=== PATIENT | female | born 1965 | race Caucasian/White ===

== ENCOUNTER 2016-10-04 12:42 | Emergency (ER) | payer OTHER ==
[2016-10-04 12:42] VITALS: BP 115/70
[~2016-10-04 12:42] MED LIST: ALBU1.25 NEB; ALBU18HF IH; AZIT250T PO; DIAZ5TAB PO; FLUT1DIS5 IH; IBUP200T43 PO; METH-37 PO; METH4TAB2 PO; NAPR500T3 PO; TRAM-29 PO
--- NOTE | 2016-10-04 13:12 | RAD ---
Left middle finger, 3 views, 10/04/2016: History: Injury, bruising No fracture or dislocation is identified. The soft tissues are unremarkable. IMPRESSION: No acute abnormality is detected.
[2016-10-04] MEDS ORDERED: IBUP800T PO (14:25)
--- NOTE | 2016-10-04 14:30 | ED.ADGEN ---
Past History Past Medical History: Anxiety, Asthma, COPD Past Surgical History: Appendectomy, Tubal ligation Alcohol Use: None Drug Use: Marijuana Adult General Chief Complaint Chief Complaint left long finger injury HPI HPI Patient is a 51 year old female who presents with left long finger injury. 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 She denies any other injuries. No lacerations reported, small flake of skin lifted off, no bleeding. Now she is having trouble bending that finger. Review of Systems Review of Systems Constitutional: Denies fever or chills [] Eyes: Denies change in visual acuity, redness, or eye pain [] HENT: Denies nasal congestion or sore throat [] Respiratory: Denies cough or shortness of breath [] Cardiovascular: Denies chest pain GI: Denies abdominal pain, nausea, vomiting, bloody stools or diarrhea [] : Denies dysuria or hematuria [] Musculoskeletal: Denies back pain Integument: Denies rash or skin lesions [] Neurologic: Denies headache, focal weakness or sensory changes [] Allergies Allergies Allergies Coded Allergies Type Severity Reaction Last Updated Verified No Known Drug Allergies 09/30/14 No Physical Exam Physical Exam Constitutional: Well developed, well nourished, no acute distress, non-toxic appearance. [] HENT: Normocephalic, atraumatic Cardiovascular:Heart rate regular Lungs & Thorax: No respiratory distress Extremities: Left hand has extended long finger with slight mallet formation of the distal phalanx, normal cap refill, normal sensory throughout the finger, tenderness to palpation generalized proximal and middle phalanges, skin appears intact, no lateral subluxation, patient is able to move at the MCP but unable to flex at the PIP or extend or flex at the DIP , no other hand tenderness to palpation Neurologic: Alert and oriented X 3, normal motor function, normal sensory function, no focal deficits noted. [] Psychologic: Affect normal, judgement normal, mood normal. [] EKG EKG [] Radiology/Procedures Radiology/Procedures XRay hand: Left middle finger, 3 views, 10/04/2016: History: Injury, bruising No fracture or dislocation is identified. The soft tissues are unremarkable. IMPRESSION: No acute abnormality is detected. [] Course & Med Decision Making Course & Med Decision Making Pertinent Labs and Imaging studies reviewed. (See chart for details) discussed findings with Dr. Gutierrez. Recommends finger splint and f/u with ortho in 1 week. Referral information given to patient. Finger splint placed by nursing staff and reviewed by me. has good distal neurovascular status. Final Impression Final Impression closed Finger injury with ligament tendon Problems: Dragon Disclaimer Dragon Disclaimer This electronic medical record was generated, in whole or in part, using a voice recognition dictation system. BONI AMBROSE MD Oct 04, 2016 14:30
== END 2016-10-04 14:43 | disposition home or self-care (01) ==
LOC: ER 12:42
DX: S67.193A Crushing injury of left middle finger, initial encounter (principal); J44.9 Chronic obstructive pulmonary disease, unspecified; F12.10 Cannabis abuse, uncomplicated; W22.8XXA Striking against or struck by other objects, initial encounter; Y93.89 Activity, other specified; Y99.8 Other external cause status; Y92.89 Other specified places as the place of occurrence of the external cause
CPT/HCPCS: 29130; 73140; 99284-25

== ENCOUNTER → 2016-10-06 | Emergency (ER) | payer OTHER ==
[~2016-10-06] VITALS: Ht 154.9 cm; Wt 109.8 kg
[~2016-10-06] MED LIST changes: +IBUP800T PO
[2016-10-06 19:05] VITALS: BP 141/63
--- NOTE | 2016-10-06 19:54 | PHYS DOC ---
General Chief Complaint: FINGER INJURY Stated Complaint: FINGER PAIN Time Seen by MD: 19:20 Source: patient Problems: History of Present Illness Initial Comments Patient here for left third and fourth digit pain. 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 She was initially seen here in the ED. She had no fracture but a splint placed. She'll follow-up the following day with her Worker's Compensation doctor. She's had her Worker's Compensation doctor told her she couldn't write any prescriptions for pain. Patient's been using Motrin at home for pain without help and presents now with continued pain in her digits. She says the pain is so bad now that starting to radiate up the arm. She indicates the pain is mostly in the digits is as described. She still has sensation. She is able to move the digits, albeit with extreme pain by her report. There is no new injury reported, and no other injuries are noted or reported except the 2 digits as described. Other than use Motrin at home and follow-up with her Worker's Compensation doctor there's been nothing done for this at home and no fractures noted increase or decrease her symptoms. Patient's past medical she is work for asthma and COPD. She does use inhalers and nebulizers on an as-needed basis. She is currently a nonsmoker and nonuser of ethanol. Allergies: Coded Allergies: No Known Drug Allergies (Unverified , 09/30/14) Past Medical History Medical History: asthma, COPD, other Social History Smoker: non-smoker Alcohol: none Review of Systems Constitutional: no symptoms reported Musculoskeletal: see HPI Skin: no symptoms reported Psychiatric/Neurological: no symptoms reported Physical Exam General Appearance: WD/WN, no apparent distress Extremities: other Neurologic/Psychiatric: alert, normal mood/affect, oriented x 3 Skin: normal color Comments Generally this well-developed well-nourished obese white female in no acute distress. Vitals are as noted. Pertinent findings on physical exam showed that her left third and fourth digits are taped together in a volar splint. Splint is removed from exam. The third and fourth digits are really not swollen, there is no distinct signs of trauma or contusion noted. The digits are diffusely tender, minimally more so over the PIP joints, with exaggerated response by the patient even minimal palpation given the lack of objective findings of injury. Patient has intact sensation and intact refill. The digits are warm. She is able to flex and extend at the DIP PIP and MCP joints, albeit with significant coaching. She does have 5 over 5 strength with giveaway weakness. There is no other injuries noted. Remainder of physical exam is clinically unremarkable. Orders, Labs, Meds Old charts note the patient was seen here 2 days ago for finger injury. She had an x-ray of the right hand which showed no acute fracture dislocation in no acute changes per radiology as well. She's also been seen for COPD, bronchitis, and muscle skeletal chest pain. I discussed with the patient that I'm not sure there is anything more to do now. I'm going to write her prescription for some additional pain medication. She says she has her neck follow up with her Worker's Compensation physician on Sunday, and I'm going to write a prescription for Ultram, 10 tablets, to get her through the weekend. She specifically denies any seizure history. I will ask nursing staff to replace her splint and elsa taped appropriately. We discussed continued home care including rest, ice, and elevation, and the need to follow-up with Worker's Compensation physician Sunday as planned. Patient voices understanding. She looks well, in no acute discomfort distress, okay for discharge home at this time. RAUDEL SANCHEZ MD Oct 06, 2016 19:54
== END ==
LOC: ER 18:58
DX: M79.645 Pain in left finger(s) (principal); J44.9 Chronic obstructive pulmonary disease, unspecified
CPT/HCPCS: 29125; 99283-25

== ENCOUNTER → 2016-11-27 | Outpatient (CLI) | payer OTHER ==
[2016-10-06 19:05] VITALS: BP 141/63
[~2016-11-27] MED LIST changes: -IBUP800T PO; +IBUP800T19 PO; -TRAM-29 PO; +TRAM-48 PO
--- NOTE | 2016-11-27 08:31 | RAD ---
Indication pain. AP and oblique views of the left knee were obtained. A true lateral view was not obtained. No bony abnormality is seen on the 2 views provided
== END | disposition home or self-care (01) ==
LOC: DXRADRC 08:03
PROVIDERS: ATTEND Physician Assistant Medical
DX: M25.562 Pain in left knee (principal); W01.0XXD Fall on same level from slipping, tripping and stumbling without subsequent striking against object, subsequent encounter
CPT/HCPCS: 73560

== ENCOUNTER 2017-02-28 10:47 | Emergency (ER) | payer OTHER ==
[~2017-02-28] VITALS: Ht 154.9 cm; Wt 109.8 kg
--- NOTE | 2017-02-28 10:59 | PHYS DOC ---
General Chief Complaint: sob Stated Complaint: COPD EXACERBATION Time Seen by MD: 10:50 Source: patient, EMS, old records Exam Limitations: no limitations Problems: History of Present Illness Initial Comments Pt is 52/F to ED via EMS with SOB/chest tightness. Pt states she awoke this am around 8, noticed she had SOB/wheeze/anterior chest tightness. Has extensive h/o COPD, called EMS. ASA/duoneb given en route, on arrival pt breathing a little better still with some chest tightness. No diaphoresis/n/v/arm or neck symptoms. No prior cardiac history, no h/o stress/ echo pt follows with A Re[facility]. States she has had cough x 6 days with some wheezing states she "always has trouble breathing." ED VS: 97.4, 82, 118/77, 97% RA Chest pain reproducible with palpation ACW. Timing/Duration: 1-3 hours Severity: moderate Modifying Factors: worse with movement Associated Symptoms: chest pain, cough, shortness of breath Allergies: Coded Allergies: No Known Drug Allergies (Unverified , 09/30/14) Past Medical History Medical History: asthma, COPD, other Surgical History: appendectomy (TL) Psychosocial History: anxiety Social History Smoker: other (quit one year ago) Alcohol: none Drugs: none Review of Systems Constitutional: denies chills, denies diaphoresis, denies fever, denies malaise EENTM: denies ear pain, nose congestion, denies throat pain, denies throat swelling Respiratory: see HPI, cough Cardiovascular: see HPI Gastrointestinal: denies abdominal pain, denies diarrhea, denies nausea, denies vomiting Genitourinary: denies dysuria, denies frequency, denies hematuria Musculoskeletal: denies back pain, denies joint swelling, denies neck pain Psychiatric/Neurological: denies headache, denies numbness, denies paresthesia , denies weakness Hematologic/Lymphatic: denies blood clots, denies easy bleeding, denies easy bruising Physical Exam General Appearance: no apparent distress, obese Ear, Nose, Throat: hearing grossly normal, normal ENT inspection, normal pharynx (dry membranes) Neck: non-tender, supple Respiratory: wheezing (mild diffuse), other (good air movement, ant chest wall TTP, no resp distress) Cardiovascular: normal peripheral pulses, regular rate, rhythm Gastrointestinal: non tender, soft Back: no CVA tenderness, no vertebral tenderness Extremities: normal range of motion, non-tender (3+ pitting LE edema) 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 Interpreted by me. Labs unremarkable CXR PA/Lat: no acute cardiopulmonary process 1251: Walking by room I see pt doubled over in obvious discomfort. She states her CP has increased dramatically to 10/10 with diaphoresis/sob. BP now 86/66, 79 bpm, 34 resp, 97% RA. BP changed to right arm, 101/75. NTG SL x 1, EKG. EKG (1256): EKG: NSR 76 bpm, unchanged from prior 1259: BP arm change, right arm 101/75. NTG SL x 1 no relief 1309: Pt discussed with Padma Arndt for Cardiology. As chest pain cannot be controlled she accepts transfer to [facility], admit to hospitalist. 1316: Dr Da Silva accepts pt for [facility] transfer. Pt received duonebs x 2, ASA, solumedrol 125mg, 2L NS IV, NTG SL x 1 Departure Time of Disposition: 13:20 Disposition: 02 XFER SHT-TRM HOSP Diagnosis: chest pain, COPD, hypotension Condition: GUARDED Additional Instructions: EMS transfer to [facility] for CP/hypotension, Dr Da Silva is accepting. RUPA PIERCE DO Feb 28, 2017 10:59
[2017-02-28] MEDS ORDERED: methylPREDNISolone SOD SUCC PF 125 MG/2 ML VIAL. IV ONE (11:15)
[2017-02-28] MEDS ORDERED: IPRATRPIUM/ALBUTEROL 0.5/2.5MG 3 ML NEBU. NEB ONE (11:15)
[2017-02-28 11:19] LABS: BASO # 0.1 x10^3/uL (0.0-0.2); BASO % 1 % (0-3); EOS # 0.3 x10^3/uL (0.0-0.7); EOS % 3 % (0-3); HEMATOCRIT 40.6 % (36.0-47.0); HEMOGLOBIN 13.7 g/dL (12.0-15.5); LYMPH # 2.7 x10^3/uL (1.0-4.8); LYMPH % 31 % (24-48); MEAN CORPUSCULAR HEMOGLOBIN 30 pg (25-35); MEAN CORPUSCULAR HGB CONC 34 g/dL (31-37); MEAN CORPUSCULAR VOLUME 90 fL (79-100); MONO # 0.6 x10^3/uL (0.0-1.1); MONO % 7 % (0-9); NEUT % 57 % (31-73); PLATELET COUNT 288 x10^3/uL (140-400); RED BLOOD COUNT 4.51 x10^6/uL (3.50-5.40); RED CELL DISTRIBUTION WIDTH 14.3 % (11.5-14.5); WHITE BLOOD COUNT 8.7 x10^3/uL (4.0-11.0)
[2017-02-28 11:34] LABS: BILIRUBIN,URINE NEG (NEG); CLARITY,URINE HAZY; COLOR,URINE AMBER; GLUCOSE,URINE NEG (NEG)
[2017-02-28 11:35] LABS: BACTERIA,URINE FEW /HPF (0-FEW); NITRITE,URINE NEG (NEG); SQUAMOUS EPITHELIAL CELL,UR MOD /LPF; UROBILINOGEN,URINE 0.2 mg/dL (0.2 mg/dL); WBC,URINE 0 /HPF (0-4)
[2017-02-28 11:38] LABS: ALBUMIN 3.4 g/dL (3.4-5.0); CALCIUM 8.5 mg/dL (8.5-10.1); CREATININE 0.8 mg/dL (0.6-1.0); GFR 75.3; MAGNESIUM 1.9 mg/dL (1.8-2.4); POTASSIUM 3.7 mmol/L (3.5-5.1); TOTAL BILIRUBIN 0.4 mg/dL (0.2-1.0); TOTAL PROTEIN 6.8 g/dL (6.4-8.2)
[2017-02-28] MEDS ORDERED: IV NORMAL SALINE 1,000ML 1,000 ML IV SCH ×2 (11:44→12:48)
--- NOTE | 2017-02-28 11:52 | RAD ---
Chest, 2 views, 02/28/2017: History: COPD, asthma, shortness of breath Comparison is made to a study from 08/28/2016. The heart size and pulmonary vascularity are normal. A calcified pulmonary granuloma is evident. No significant infiltrate is seen. There is no evidence of pleural fluid. IMPRESSION: No acute cardiopulmonary abnormality is detected.
--- NOTE | 2017-02-28 13:12 | EKG ---
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
[2017-02-28] MEDS ORDERED: NITROGLYCERIN SUBLINGUAL 0.4 MG BOTTLE OF 25. SL ONE (13:15)
--- NOTE | 2017-02-28 13:19 | EKG ---
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
[2017-02-28 13:35] VITALS: BP 109/59
== END 2017-02-28 14:40 | disposition short-term general hospital (02) ==
LOC: ER 10:47
DX: R07.89 Other chest pain (principal); J44.9 Chronic obstructive pulmonary disease, unspecified; I10 Essential (primary) hypertension; I95.9 Hypotension, unspecified
CPT/HCPCS: 36415; 71020; 80053; 81001; 83605; 83735; 83880; 84484; 85025; 85379; 87040; 93005; 94640; 96361; 96374; 99285; J2930; J7620; J7030

== ENCOUNTER → 2017-10-23 | Outpatient (CLI) | payer OTHER ==
[~2017-10-23] MED LIST changes: -IBUP200T43 PO; +IBUP200T44 PO; +NAPR-514 PO; -NAPR500T3 PO
--- NOTE | 2017-10-23 09:58 | RAD ---
Right lower extremity venous ultrasound, 10/23/2017 : History: Knee pain, knee swelling Duplex evaluation including grayscale, color flow and spectral Doppler analysis was performed. The femoral and popliteal veins show no filling defects to suggest DVT. The visualized deep veins in the right calf are unremarkable. Small fluid collections along the anterior aspect of the knee are noted compatible with a joint effusion. IMPRESSION: 1. There is no sonographic evidence of deep vein thrombosis in the right lower extremity. 2. Right knee joint effusion.
--- NOTE | 2017-10-23 10:02 | RAD ---
Right knee, 3 views, 10/23/2017: History: Knee pain, difficulty angulating No fracture or dislocation is identified. There is only minimal spurring at the patellofemoral articulation. No large joint effusion is seen. IMPRESSION: No acute bony abnormality is detected.
== END | disposition home or self-care (01) ==
LOC: PMG 07:13
PROVIDERS: ATTEND Physician Assistant Medical
DX: M25.461 Effusion, right knee (principal); M79.661 Pain in right lower leg
CPT/HCPCS: 73562; 93971

== ENCOUNTER 2019-07-25 08:14 | Emergency (ER) | payer SELFPAY ==
[~2019-07-25] VITALS: Ht 165.1 cm; Wt 112.0 kg
[~2019-07-25 08:14] MED LIST changes: -ALBU18HF IH; +ALBU2.5V8 IH
[2019-07-25] MEDS ORDERED: IPRATRPIUM/ALBUTEROL 0.5/2.5MG 3 ML NEBU. NEB ONE (08:30)
[2019-07-25] MEDS ORDERED: DEXAMETHASONE SOD PHOS 4 MG/ML VIAL IVP ONE (08:30)
--- NOTE | 2019-07-25 08:30 | PHYS DOC ---
Past History Past Medical History: Asthma, Bronchitis, COPD Past Surgical History: Appendectomy, Tubal ligation Alcohol Use: None Drug Use: None Adult General Chief Complaint Chief Complaint: SHORTNESS OF BREATH HPI HPI 54-year-old female with past history of COPD presents with one-week history of URI-type symptoms including fever and nasal congestion. Patient thinks she might have contracted the flu. Reports her flu symptoms were getting better. Reports s he went to her place of employment today and suddenly became very short of breath. Patient did try using a breathing treatment without improvement. EMS was called. EMS reports giving 125 mg of Solu-Medrol and 1 DuoNeb treatment in route. Patient reports some improvement of her symptoms. Denies leg swelling or calf tenderness. Denies chest pain. Patient also reports pruritic rash to her neck which started yesterday. Review of Systems Review of Systems Constitutional: Reports subjective fever/chills which have improved Eyes: Denies redness or eye pain HENT: Reports nasal congestion; denies sore throat Respiratory: Reports cough, wheezing, and shortness of breath Cardiovascular: Denies chest pain or palpitations GI: Denies abdominal pain, nausea, or vomiting : Denies dysuria or hematuria Musculoskeletal: Denies back pain or joint pain Integument: Reports pruritus and rash to face/neck Neurologic: Denies headache, focal weakness or sensory changes Complete systems were reviewed and found to be within normal limits, except as documented in this note. Current Medications Current Medications Current Medications Medications (Trade) Dose Ordered Sig/Jann Start Time Stop Time Status Last Admin Dose Admin Albuterol/ Ipratropium (Duoneb) 3 ml 1X ONCE 07/25/19 08:30 07/25/19 08:31 Dexamethasone Sodium Phosphate (Decadron) 10 mg 1X ONCE 07/25/19 08:30 07/25/19 08:31 Allergies Allergies Allergies Coded Allergies Type Severity Reaction Last Updated Verified No Known Drug Allergies 09/30/14 No Physical Exam Physical Exam Constitutional: Well developed, well nourished, no acute distress, non-toxic appearance, obese HENT: Normocephalic, atraumatic, oropharynx moist, nasal congestion noted Eyes: Conjunctiva normal, no discharge Neck: Normal range of motion, no tenderness, supple Cardiovascular: Heart rate normal, regular rhythm Lungs & Thorax: Bilateral breath sounds equal with right lower lung wheezing on auscultation Abdomen: Soft, no tenderness Skin: Warm, dry, no erythema, maculopapular rash to bilateral neck and up onto face Extremities: No tenderness, ROM intact, BLE 1+ edema Neurologic: Alert and oriented X 3, no focal deficits noted Psychologic: Affect normal, judgement normal EKG EKG @0827 NSR at 77bpm, NO ST elevation, Q wave in I and aVL Radiology/Procedures Radiology/Procedures PROCEDURE: CHEST PA & LATERAL CHEST PA LATERAL History: Dyspnea Comparison: February 28, 2017 Findings: Single lateral and 2 PA views of the chest are submitted. There is no lobar consolidation, pleural fluid, or pneumothorax. Cardiac silhouette is stable, within normal limits. Impression: 1. There is no radiographic evidence of acute cardiopulmonary disease. Electronically signed by: Adonis Villeda MD (07/25/2019 9:24 AM) [facility] Course & Med Decision Making Course & Med Decision Making Pertinent Labs and Imaging studies reviewed. (See chart for details) Patient with past medical history of COPD presents with difficulty breathing and increased wheezing this morning upon her presentation to work. Reports trialed a breathing treatment without improvement. EMS was therefore called who gave her one DuoNeb and 125 mg Solu-Medrol in route. Patient reports interval improvement. Reports his been having flulike symptoms for the past week. Reports that she was getting better. Denies trauma. Patient reports last COPD exacerbation requiring admission was 4 years ago. Denies need for use of ventilator or BiPAP. Symptomatic treatment provided with 10 mg of dexamethasone and additional DuoNeb. 12-lead EKG negative. Labs obtained and posted to chart. Lactic acid elevated. SIRS criteria not met. Rapid influenza negative. Chest x-ray without acute process. UA originally ordered. Patient reports she is not having symptoms for UTI at this time. UA therefore cancelled. Patient with interval improvement of symptoms. Patient stable for discharge with outpatient follow-up with PCP. Discussed findings and plan with patient and family, who acknowledge understanding and agreement. Dragon Disclaimer Dragon Disclaimer This electronic medical record was generated, in whole or in part, using a voice recognition dictation system. Departure Departure: Impression: Primary Impression: COPD exacerbation Additional Impressions: Lactic acidosis Rash Disposition: HOME, SELF-CARE Condition: IMPROVED Referrals: [facility] (PCP) SVETLANA SANCHEZ MD Patient Instructions: Chronic Obstructive Pulmonary Disease Exacerbation, [id number]-[id number], Lactic Acid, Lactate, Rash, [id number]-[id number] Scripts Guaifenesin/Codeine Phosphate (Codeine-Guaifen 10-100 mg/5 ml) 120 Ml Liquid 10 ML PO PRN Q6HRS PRN for cough and congestion MDD 20 Milliliter(s), #200 ML 0 Refills Prov: MITZY FRANCIS DO 07/25/19 Albuterol Sulfate (PROAIR HFA INHALER) 8.5 Gm Hfa.aer.ad 2 PUFF IH PRN Q4-6HRS PRN for wheezing, #1 INHALER 0 Refills Prov: MITZY FRANCIS DO 07/25/19 Prednisone (PREDNISONE) 20 Mg Tablet 2 TAB PO DAILY for RASH, #8 TAB Prov: MITZY FRANCIS DO 07/25/19 Problem Qualifiers MITZY FRANCIS DO Jul 25, 2019 08:30
--- NOTE | 2019-07-25 08:39 | EKG ---
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
[2019-07-25 08:48] VITALS: BP 114/78
[2019-07-25 08:51] LABS: BASO % 0 % (0-3); EOS # 0.2 x10^3/uL (0.0-0.7); EOS % 3 % (0-3); HEMATOCRIT 42.5 % (36.0-47.0); HEMOGLOBIN 13.9 g/dL (12.0-15.5); LYMPH # 1.8 x10^3/uL (1.0-4.8); LYMPH % 25 % (24-48); MEAN CORPUSCULAR HEMOGLOBIN 30 pg (25-35); MEAN CORPUSCULAR HGB CONC 33 g/dL (31-37); MEAN CORPUSCULAR VOLUME 91 fL (79-100); MONO # 0.4 x10^3/uL (0.0-1.1); MONO % 6 % (0-9); NEUT # 4.7 x10^3uL (1.8-7.7); NEUT % 65 % (31-73); PLATELET COUNT 321 x10^3/uL (140-400); RED BLOOD COUNT 4.66 x10^6/uL (3.50-5.40); RED CELL DISTRIBUTION WIDTH 13.9 % (11.5-14.5); WHITE BLOOD COUNT 7.2 x10^3/uL (4.0-11.0)
[2019-07-25 08:58] LABS: CALCIUM 7.9 mg/dL (8.5-10.1); CREATININE 0.8 mg/dL (0.6-1.0); GFR 74.7; POTASSIUM 3.5 mmol/L (3.5-5.1)
[2019-07-25 09:06] LABS: INFLUENZA A PATIENT NEGATIVE (NEGATIVE); INFLUENZA B PATIENT NEGATIVE (NEGATIVE)
[2019-07-25 09:14] LABS: ALBUMIN/GLOBULIN RATIO 0.8 (1.0-1.7); MAGNESIUM 1.9 mg/dL (1.8-2.4); TOTAL BILIRUBIN 0.6 mg/dL (0.2-1.0); TOTAL PROTEIN 6.6 g/dL (6.4-8.2)
--- NOTE | 2019-07-25 09:27 | RAD ---
CHEST PA LATERAL History: Dyspnea Comparison: February 28, 2017 Findings: Single lateral and 2 PA views of the chest are submitted. There is no lobar consolidation, pleural fluid, or pneumothorax. Cardiac silhouette is stable, within normal limits. Impression: 1. There is no radiographic evidence of acute cardiopulmonary disease. Electronically signed by: Adonis Villeda MD (07/25/2019 9:24 AM) [facility]
[2019-07-25] MEDS ORDERED: PRED20TA PO (09:51)
[2019-07-25] MEDS ORDERED: ALBU2.5V8 IH (09:51)
[2019-07-25] MEDS ORDERED: GUAI120L35 PO (09:51)
== END 2019-07-25 09:58 | disposition home or self-care (01) ==
LOC: ER 08:14
DX: J41.1 Mucopurulent chronic bronchitis (principal); E87.2 Acidosis; R21 Rash and other nonspecific skin eruption; Z90.89 Acquired absence of other organs; Z98.51 Tubal ligation status
CPT/HCPCS: 36415; 71046; 80053; 82553; 83605; 83735; 83880; 84484; 85025; 87804; 93005; 94640; 96374; 99285; J1100; J7620

== ENCOUNTER → 2020-04-19 | Outpatient (CLI) | payer OTHER ==
[~2020-04-19] MED LIST changes: +GUAI120L35 PO; +PRED20TA PO
--- NOTE | 2020-04-19 13:15 | RAD ---
EXAM: Bilateral knees, 2 views. HISTORY: Disability determination. COMPARISON: 10/23/2017. FINDINGS: 2 views of both knees are obtained. There is mild bilateral medial compartment spurring. There is no significant joint space narrowing. There is no fracture, dislocation or subacute fixation. There is no joint effusion. IMPRESSION: Mild medial compartment osteoarthritis of both knees. Electronically signed by: Nya Bean MD (04/19/2020 1:12 PM) [id number]
== END ==
LOC: DXRAD 11:49
PROVIDERS: ATTEND Anesthesiology Pain Medicine
DX: M17.0 Bilateral primary osteoarthritis of knee (principal); M77.32 Calcaneal spur, left foot; M77.31 Calcaneal spur, right foot
CPT/HCPCS: 73560

== ENCOUNTER → 2020-10-11 | Outpatient (CLI) | payer OTHER | LOC: MAMMO 08:08 | PROVIDERS: ATTEND Nurse Practitioner Family | DX: Z12.31 Encounter for screening mammogram for malignant neoplasm of breast (principal) | CPT/HCPCS: 77067 ==

== ENCOUNTER → 2020-12-06 | Outpatient (CLI) | payer OTHER ==
--- NOTE | 2020-12-06 15:16 | RAD ---
PROCEDURE: MG DIAGNOSTIC BILAT, US BREAST LT HISTORY: The patient is 55 years old and is seen for Reason: CALLBACK / Spl. Instructions: / History : . COMPARISON: October 11, 2020 TECHNIQUE: Bilateral spot compression views and ML views. Left breast targeted ultrasound DENSITY: The breast tissue is predominantly fatty. FINDINGS: Right mammogram: Right breast asymmetry is less apparent on spot compression views. No suspicious talya rocalcification or architectural distortion. Left mammogram: Left breast inferior asymmetry is less apparent on spot compression view. Upper outer asymmetry persists on spot compression view. Left ultrasound: Targeted left breast ultrasound of the upper outer quadrants demonstrates small hypo echoic lesion 2:00 position of proximal Lasix imaged from the nipple measures 0.5 x 0.3 cm. No suspic ious posterior shadowing. Enlarged left axillary lymph nodes. Patient reportedly had Covid vaccine wi thin the left arm recently. IMPRESSION: 1. Left breast hypoechoic lesion, may represent complicated cyst. Recommend 6 month follow-up. 2. Bilateral asymmetries less apparent on spot compression views. Recommend attention on 6 month fol low-up. 3. Enlarged left axillary lymph nodes. Recommend annual screening mammograms per [employer] guidelines. Patient will be due in six months. Recommend 6 month bilateral mammogram and left breast ultrasound. BI-RADS category 3 Probably benign Our clinic nurse has been instructed to assist with communicating findings and recommendations to the patient's referring physician and in scheduling follow-up. Patient entered into a reminder system for annual screening mammogram. Electronically signed by: Deacon Hirsch DO (12/06/2020 3:13 PM) [id number]
== END ==
LOC: MAMMO 14:00
PROVIDERS: ATTEND Nurse Practitioner Family
DX: R92.2 Inconclusive mammogram (principal); R59.9 Enlarged lymph nodes, unspecified
CPT/HCPCS: 76641; 77066

== ENCOUNTER 2021-11-17 16:41 | Emergency (ER) | payer SELFPAY ==
[~2021-11-17] VITALS: Ht 165.1 cm; Wt 112.0 kg
[2021-11-17 18:28] VITALS: BP 102/66
[2021-11-17] MEDS ORDERED: LIDOCAINE 1%/EPI 1:100,000 20 ML VIAL. IJ ONE (20:30)
--- NOTE | 2021-11-17 21:27 | PHYS DOC ---
Past History Past Medical History: COPD (ZACARIAS MARROQUIN APRN) Past Surgical History: No Surgical History (ZACARIAS MARROQUIN APRN) Alcohol Use: None Drug Use: None (ZACARIAS MARROQUIN APRN) General Adult EDM: Chief Complaint: ABSCESS HPI: HPI: Patient is a 56-year-old female who presents with abscess to her lower abdomen. Patient states that she gets abscesses often but never has had 1 this bad. Patient reports 10/10 pain. Large area on abdomen is red, hard, swollen, blackened in the middle. Patient is taking ibuprofen for discomfort. Pain is increased with movement and touching the area. Patient has history of COPD. (ZACARIAS MARROQUIN APRN) Review of Systems: Review of Systems: ROS At least 10 ROS systems have been reviewed and are negative except as documented in the HPI. General: Negative except as outlined in HPI above. Skin: Negative except as outlined in HPI above. HEENT: Negative except as outlined in HPI above. Neck: Negative except as outlined in HPI above. Respiratory: Negative except as outlined in HPI above.. Cardiovascular: Negative except as outlined in HPI above. Abdomen: Negative except as outlined in HPI above. : Negative except as outlined in HPI above. Back/MSK: Negative except as outlined in HPI above. Neuro: Negative except as outlined in HPI above. Psych: Negative except as outlined in HPI above. (ZACARIAS MARROQUIN APRN) Current Medications: Current Meds: Current Medications Medications (Trade) Dose Ordered Sig/Jann Start Time Stop Time Status Last Admin Dose Admin Lidocaine/ Epinephrine (Xylocaine 1%-Epi 1:100,000) 20 ml 1X ONCE 11/17/21 20:30 11/17/21 20:31 DC 11/17/21 20:26 20 ML (ZACARIAS MARROQUIN APRN) Allergies: Allergies: Allergies Coded Allergies Type Severity Reaction Last Updated Verified Penicillins Allergy Unknown 11/17/21 Yes (ZACARIAS MARROQUIN APRN) Physical Exam: PE: Constitutional: Well developed, well nourished, no acute distress, non-toxic appearance. [] HENT: Normocephalic, atraumatic, bilateral external ears normal, oropharynx moist, no oral exudates, nose normal. [] Eyes: PERRLA, EOMI, conjunctiva normal, no discharge. [] Neck: Normal range of motion, no tenderness, supple, no stridor. [] Cardiovascular:Heart rate regular rhythm, no murmur [] Lungs & Thorax: Bilateral breath sounds clear to auscultation [] Abdomen: Bowel sounds normal, soft, tenderness to lower abdomen. Skin: Lower abdomen, red, warm to the touch, hard and blackened in the middle of the abscess, painful Back: No tenderness, no CVA tenderness. [] Extremities: No tenderness, no cyanosis, no clubbing, ROM intact, no edema. [] Neurologic: Alert and oriented X 3, normal motor function, normal sensory fu nction, no focal deficits noted. [] Psychologic: Affect normal, judgement normal, mood normal. [] (ZACARIAS MARROQUIN APRN) Current Patient Data: Vital Signs: Vital Signs Date Time Temp Pulse Resp B/P (MAP) Pulse Ox O2 Delivery O2 Flow Rate FiO2 11/17/21 18:28 97.9 85 18 102/66 (78) 95 Room Air (ZACARIAS MARROQUIN APRN) EKG: EKG: [] (ZACARIAS MARROQUIN APRN) Radiology/Procedures: Radiology/Procedures: [] (ZACARIAS MARROQUIN APRN) Heart Score: C/O Chest Pain: No Risk Factors: Risk Factors: DM, Current or recent (<one month) smoker, HTN, HLP, family hist ory of CAD, obesity. Risk Scores: Score 0 - 3: 2.5% MACE over next 6 weeks - Discharge Home Score 4 - 6: 20.3% MACE over next 6 weeks - Admit for Clinical Observation Score 7 - 10: 72.7% MACE over next 6 weeks - Early Invasive Strategies (ZACARIAS MARROQUIN APRN) Course & Med Decision Making: Course & Med Decision Making Pertinent Labs and Imaging studies reviewed. (See chart for details) [] 56-year-old female presents with abscess to her lower abdomen. Pain is 10/10. The area is red, hard, warm and swollen. I&D was performed. Moderate amount of drainage was expelled. Explained to patient she would need to be admitted to the hospital for IV antibiotics. Patient is refusing to be admitted to the hospital. Advised patient that there is possibility of disability and by leaving the hospital and not receiving further care. Patient verbalized understanding of risk. Patient states that she does not care and that she will go see her doctor,but will not be be admitted to the hospital. Explained to patient she would need to sign AMA paperwork. Patient is signing AMA paperwork. Sending patient home on antibiotics and pain meds. Patient given 1 dose of pain meds while in the ER. Patient's tetanus is up-to-date. (ZACARIAS MARROQUIN APRN) Dragon Disclaimer: Dragon Disclaimer: This electronic medical record was generated, in whole or in part, using a voice recognition dictation system. (ZACARIAS MARROQUIN APRN) Incision and Drainage Indication: Abscess Procedure: The patient was positioned appropriately and the skin over the incision site was cleaned. Local anesthesia was injected around the wound. An incision was then made over the abscess and moderate amount material was expressed. Loculations were broken up. The patients tetanus status up-to-date The patient tolerated the procedure well Complications: None (ZACARIAS MARROQUIN APRN) Departure Departure: Impression: Primary Impression: Abscess Disposition: LEFT AGAINST MEDICAL ADVICE Condition: STABLE Referrals: BHUMIKA SIMON APRN (PCP) Scripts Hydrocodone Bit/Acetaminophen (HYDROCODONE-APAP 5-325 ) 1 Each Tablet 1-2 TAB PO PRN Q6HRS PRN for PAIN for 3 Days, #12 TAB 0 Refills Prov: ZACARIAS MARROQUIN APRN 11/17/21 Sulfamethoxazole/Trimethoprim (BACTRIM DS TABLET) 1 Each Tablet 1 TAB PO BID for abscess for 10 Days, #20 TAB 0 Refills Prov: ZACARIAS MARROQUIN APRN 11/17/21 ZACARIAS MARROQUIN APRN November 17, 2021 21:27 MIGUEL A VASQUEZ MD Nov 25, 2021 07:34
[2021-11-17] MEDS ORDERED: HYDROcodone/APAP 5/325MG 1 TAB TABLET PO ONE (21:30)
[2021-11-17] MEDS ORDERED: HYDR-2155 PO (21:37)
[2021-11-17] MEDS ORDERED: SULF1TAB24 PO (21:37)
[2021-11-17] MEDS ORDERED: SMZ/TMP 800/160MG TABLET. PO ONE (21:45)
== END 2021-11-17 22:00 | disposition left against medical advice (07) ==
LOC: ER 16:41
DX: L02.211 Cutaneous abscess of abdominal wall (principal); J44.9 Chronic obstructive pulmonary disease, unspecified; Z88.0 Allergy status to penicillin
CPT/HCPCS: 10060; 87071; 87077; 87186; 99283